=== PATIENT | male | born 1975 ===

== ENCOUNTER 2020-08-08 02:03 | Emergency (ER) | payer OTHER ==
[~2020-08-08] VITALS: Ht 182.9 cm; Wt 81.6 kg
[2020-08-08 02:15] VITALS: Ht 182.9 cm; Wt 81.6 kg
[2020-08-08 02:58] LABS: BASOPHIL % 1.1 % (0.2-1.5); PLATELET COUNT 160 x10^3mcL (152-348); RED CELL DISTRIBUTION WIDTH 13.3 % (12.1-16.2)
[2020-08-08 03:05] LABS: CALCIUM 9.1 mg/dL (8.5-10.1); CARBON DIOXIDE 25.7 mmol/L (21-32); CREATININE SERUM 1.6 mg/dL (0.7-1.3); POTASSIUM SERUM 3.9 mmol/L (3.5-5.1)
[2020-08-08 11:00] VITALS: BP 134/83
== END 2020-08-08 11:00 | disposition home or self-care (01) ==
LOC: ED 02:03
PROVIDERS: Emergency Medicine
DX: F10.129 Alcohol abuse with intoxication, unspecified (principal); R40.4 Transient alteration of awareness
CPT/HCPCS: G0480; J1815; J2405; J2765; J7030